=== PATIENT | female | born 1995 | race Caucasian/White ===

== ENCOUNTER 2017-05-26 11:09 | Outpatient (CLI) | payer OTHER ==
[2017-05-26 14:45] LABS: RUPTURE FETAL MEMBRANES NEGATIVE (NEGATIVE)
[2017-05-26] MEDS ORDERED: TERBUTALINE 1 ML (17:02)
[2017-05-26] MEDS: LACTATED RINGER'S 1,000 ML IV (17:16)
[2017-05-26] MEDS: TERBUTALINE 1 MG/ML INJ SC (17:17)
[2017-05-26] MEDS: BETAMET NA PHOS/AC(6 MG/ML) 5ML INJ IM (18:23)
== END 2017-05-26 19:15 | disposition home or self-care (01) ==
LOC: OBT 11:09 → L-D 11:10 → OBT 19:15
DX: O26.892 Other specified pregnancy related conditions, second trimester (principal); Z3A.27 27 weeks gestation of pregnancy; R10.30 Lower abdominal pain, unspecified; M54.9 Dorsalgia, unspecified
CPT/HCPCS: 36415; 76815; 76817; 76818; 82731; 84112; 96360; 96361; 96372

== ENCOUNTER 2017-05-27 18:51 | Inpatient (IN) | payer OTHER ==
[2017-05-27] MEDS: BETAMET NA PHOS/AC(6 MG/ML) 5ML INJ IM (20:39)
[2017-05-27 21:05] LABS: ADD UMIC YES; UR ASCORBIC ACID NEGATIVE (NEGATIVE); UR BACTERIA FEW /HPF (NONE SEEN); UR BILIRUBIN (Dip) NEGATIVE (NEGATIVE); UR BLOOD (Dip) NEGATIVE (NEGATIVE); UR CLARITY SLIGHTLY CLOUDY (CLEAR); UR COLOR YELLOW (YELLOW); UR GLUCOSE (Dip) NEGATIVE (NEGATIVE); UR KETONES (Dip) TRACE mg/dL (NEGATIVE); UR LEUKOCYTE ESTERASE (Dip) 3+ Leu/ul (NEGATIVE); UR NITRITE (Dip) NEGATIVE (NEGATIVE); UR RBC 2 /HPF (0-5); UR SPECIFIC GRAVITY (Dip) 1.018 (1.003-1.030); UR SQUAMOUS EPITHELIAL CELL FEW /HPF (FEW); UR TOTAL PROTEIN (Dip) 1+ mg/dl (NEGATIVE); UR UROBILINOGEN (Dip) NEGATIVE (NEGATIVE); UR WBC 4 /HPF (0-5)
[2017-05-27] MEDS: LACTATED RINGER'S 1,000 ML IV (23:00)
[2017-05-28] MEDS ORDERED: ACETAMINOPHEN 325 MG TAB PO
[2017-05-28] MEDS: MAGNESIUM SULFATE 4 GM/100 ML 100 ML IV (00:19)
[2017-05-28] MEDS: LACTATED RINGER'S 1,000 ML IV ×2 (00:20→19:29)
[2017-05-28] MEDS: MAGNESIUM SULFATE 20 GM/500 ML 500 ML IV ×3 (01:07→22:33)
[2017-05-28 08:44] LABS: MAGNESIUM 5.6 mg/dl (1.7-2.5)
[2017-05-28] MEDS: PRENATAL VITAMIN PO (10:37)
[2017-05-28 13:23] LABS: MAGNESIUM 5.1 mg/dl (1.7-2.5)
[2017-05-28 19:02] LABS: MAGNESIUM 5.6 mg/dl (1.7-2.5)
[2017-05-28 19:03] LABS: ADD MAN DIFF? NO
[2017-05-28 19:04] LABS: BASOPHILS % 0.2 % (0.0-2.0); HEMATOCRIT 26.6 % (37.0-47.0); HEMOGLOBIN 8.9 g/dl (12.0-16.0); LYMPHOCYTES # 2.3 10^3/ul (0.8-2.9); LYMPHOCYTES % 15.5 % (15.0-51.0); MEAN CORPUSCULAR HEMOGLOBIN 30.8 pg (29.0-33.0); MEAN CORPUSCULAR HGB CONC 33.5 g/dl (32.0-37.0); MONOCYTE # 1.5 10^3/ul (0.3-0.9); MONOCYTES % 10.2 % (0.0-11.0); NEUTROPHIL # 10.7 10^3/ul (1.6-7.5); NEUTROPHILS % 73.1 % (39.0-77.0); PLATELET COUNT 305 10^3/UL (140-415); RED BLOOD COUNT 2.89 10^6/ul (4.20-5.40); RED CELL DISTRIBUTION WIDTH 13.1 % (11.5-14.5)
[2017-05-28 19:04] LABS: WHITE BLOOD COUNT 14.7 10^3/ul (4.8-10.8)
[2017-05-29 01:38] LABS: MAGNESIUM 5.1 mg/dl (1.7-2.5)
[2017-05-29] MEDS: PRENATAL VITAMIN PO (09:04)
[2017-05-29] MEDS: MAGNESIUM SULFATE 20 GM/500 ML 500 ML IV (09:06)
[2017-05-29] MEDS: LACTATED RINGER'S 1,000 ML IV (09:07)
[2017-05-29] MEDS: NIFEdipine 10 MG CAP PO ×2 (13:13→18:04)
[2017-05-29] MEDS ORDERED: NIFEdipine 10 MG CAP PO (18:00)
== END 2017-05-29 18:59 | disposition home or self-care (01) | DRG 778 ==
LOC: OBT 18:51 → L-D 18:52
DX: O60.03 Preterm labor without delivery, third trimester (principal); Z3A.31 31 weeks gestation of pregnancy
CPT/HCPCS: 36415; 76815; 76817; 81001; 83735; 85025; 87086

== ENCOUNTER 2017-06-17 12:39 | Outpatient (CLI) | payer OTHER ==
[2017-06-17] MEDS: LACTATED RINGER'S 1,000 ML IV ×2 (14:03→15:16)
[2017-06-17] MEDS: TERBUTALINE 1 MG/ML INJ SC (14:03)
[2017-06-17] MEDS ORDERED: TERBUTALINE 1 MG/ML INJ SC (15:33)
== END 2017-06-17 18:05 | disposition home or self-care (01) ==
LOC: OBT 12:39 → L-D 12:41 → OBT 17:19 → L-D 17:19 → OBT 18:05
DX: O62.9 Abnormality of forces of labor, unspecified (principal); Z3A.34 34 weeks gestation of pregnancy
CPT/HCPCS: 36415; 96360; 96361; 96372

== ENCOUNTER 2017-07-12 10:59 | Inpatient (IN) | payer OTHER ==
[2017-07-12] MEDS ORDERED: CARBOPROST 250 MCG INJ IM ×2 (12:30→17:30)
[2017-07-12] MEDS ORDERED: LIDOCAINE 1% (MPF) 30 ML INJ INJ (12:30)
[2017-07-12] MEDS ORDERED: OXYTOCIN 30 UNITS/LR 500 ML IV ×2 (12:30→17:30)
[2017-07-12] MEDS ORDERED: MISOPROSTOL 200 MCG TAB PR ×2 (12:30→17:30)
[2017-07-12] MEDS ORDERED: METHYLERGONOVINE 0.2 MG INJ IM ×2 (12:30→17:30)
[2017-07-12 12:45] LABS: ADD MAN DIFF? NO
[2017-07-12 12:49] LABS: BASOPHIL # 0.1 10^3/ul (0.0-0.1); BASOPHILS % 0.4 % (0.0-2.0); EOSINOPHILS % 0.1 % (0.0-7.0); HEMATOCRIT 32.3 % (37.0-47.0); HEMOGLOBIN 10.2 g/dl (12.0-16.0); LYMPHOCYTES # 3.1 10^3/ul (0.8-2.9); LYMPHOCYTES % 24.2 % (15.0-51.0); MEAN CORPUSCULAR HEMOGLOBIN 27.4 pg (29.0-33.0); MEAN CORPUSCULAR HGB CONC 31.6 g/dl (32.0-37.0); MEAN CORPUSCULAR VOLUME 86.8 fl (82.0-101.0); MEAN PLATELET VOLUME 10.5 fl (7.4-10.4); MONOCYTE # 1.1 10^3/ul (0.3-0.9); MONOCYTES % 8.7 % (0.0-11.0); NEUTROPHIL # 8.5 10^3/ul (1.6-7.5); NEUTROPHILS % 65.9 % (39.0-77.0); NUCLEATED RED BLOOD CELLS% 0.2 /100WBC (0.0-0.0); PLATELET COUNT 328 10^3/UL (140-415); RED BLOOD COUNT 3.72 10^6/ul (4.20-5.40); RED CELL DISTRIBUTION WIDTH 13.6 % (11.5-14.5)
[2017-07-12] MEDS: LACTATED RINGER'S 1,000 ML IV (12:50)
[2017-07-12] MEDS: BUTORPHANOL 2 MG INJ IV (12:51)
[2017-07-12] MEDS: AMPICILLIN 2 GM/NS (PMX) 100 ML IV (13:01)
[2017-07-12 13:09] LABS: INR 0.88; PT RATIO 0.9
[2017-07-12 13:39] LABS: HEPATITIS B SURFACE ANTIGEN NEGATIVE (NEGATIVE)
[2017-07-12] MEDS: OXYTOCIN 30 UNITS/LR 500 ML IV ×2 (13:58→15:25)
[2017-07-12 14:55] LABS: RAPID PLASMA REAGIN NONREACTIVE (NR)
[2017-07-12] MEDS ORDERED: AMPICILLIN 1 GM/NS (PMX) 50 ML IV (16:30)
[2017-07-12] MEDS: LACTATED RINGER'S 1,000 ML IV* (17:10)
[2017-07-12] MEDS ORDERED: HYDROCODONE/APAP (5/325) TAB PO ×2 (17:30)
[2017-07-12] MEDS ORDERED: ZOLPIDEM 5 MG TAB PO (17:30)
[2017-07-12] MEDS ORDERED: LANOLIN 7 GM TUBE TOP (17:30)
[2017-07-12] MEDS: IBUPROFEN 600 MG TAB PO ×2 (18:07→23:39)
[2017-07-12] MEDS: BENZOCAINE 20% 56 ML SPRAY TOP (18:14)
[2017-07-12] MEDS: WITCH HAZEL/GLYCERIN PAD PR (18:14)
[2017-07-12] MEDS: DIBUCAINE 1% 30 GM OINT PR (18:15)
[2017-07-12] MEDS: MAGNESIUM HYDROXIDE 30ML CUP PO (20:48)
[2017-07-12] MEDS: SENNA/DOCUSATE NA (8.6MG/50MG) TAB PO (20:48)
[2017-07-13] MEDS: LACTATED RINGER'S 1,000 ML IV* ×3 (01:10→17:10)
[2017-07-13] MEDS: IBUPROFEN 600 MG TAB PO ×3 (05:31→18:27)
[2017-07-13 06:51] LABS: ADD MAN DIFF? NO
[2017-07-13 06:57] LABS: BASOPHILS % 0.3 % (0.0-2.0); EOSINOPHILS % 0.1 % (0.0-7.0); HEMATOCRIT 23.9 % (37.0-47.0); HEMOGLOBIN 7.7 g/dl (12.0-16.0); LYMPHOCYTES # 3.2 10^3/ul (0.8-2.9); LYMPHOCYTES % 23.7 % (15.0-51.0); MEAN CORPUSCULAR HEMOGLOBIN 28.2 pg (29.0-33.0); MEAN CORPUSCULAR HGB CONC 32.2 g/dl (32.0-37.0); MEAN CORPUSCULAR VOLUME 87.5 fl (82.0-101.0); MEAN PLATELET VOLUME 10.4 fl (7.4-10.4); MONOCYTE # 1.3 10^3/ul (0.3-0.9); MONOCYTES % 9.7 % (0.0-11.0); NEUTROPHIL # 8.9 10^3/ul (1.6-7.5); NEUTROPHILS % 65.8 % (39.0-77.0); NUCLEATED RED BLOOD CELLS% 0.1 /100WBC (0.0-0.0); PLATELET COUNT 279 10^3/UL (140-415); RED BLOOD COUNT 2.73 10^6/ul (4.20-5.40); RED CELL DISTRIBUTION WIDTH 13.7 % (11.5-14.5)
[2017-07-13 06:57] LABS: WHITE BLOOD COUNT 13.5 10^3/ul (4.8-10.8)
[2017-07-13] MEDS: SENNA/DOCUSATE NA (8.6MG/50MG) TAB PO ×2 (08:53→21:11)
[2017-07-13] MEDS: MAGNESIUM HYDROXIDE 30ML CUP PO ×2 (08:53→21:11)
[2017-07-14] MEDS: IBUPROFEN 600 MG TAB PO ×3 (00:03→12:14)
[2017-07-14] MEDS: LACTATED RINGER'S 1,000 ML IV* (01:10)
[2017-07-14] MEDS: MAGNESIUM HYDROXIDE 30ML CUP PO (09:00)
[2017-07-14] MEDS: SENNA/DOCUSATE NA (8.6MG/50MG) TAB PO (09:24)
[2017-07-14] MEDS: DIPHTH/TET/ACEL PERTUSS (ADULT) 0.5 ML VIAL IM* (09:31)
[2017-07-14] MEDS: VARICELLA VACCINE LIVE/PF 1,350 UNIT/0.5 ML ML SC* (09:32)
[2017-07-14] MEDS: MEASLES,MUMPS,RUBELLA VACCINE INJ SC* (09:32)
== END 2017-07-14 16:41 | disposition home or self-care (01) | DRG 775 ==
LOC: OBT 10:59 → L-D 11:00 → OBT 12:10 → L-D 12:00 → PP1 16:20
PROVIDERS: Obstetrics & Gynecology
PROC: 10E0XZZ Delivery of Products of Conception, External Approach (ICD-10-PCS; principal; 2017-07-12)
PROC: 0KQM0ZZ Repair Perineum Muscle, Open Approach (ICD-10-PCS; 2017-07-12)
PROC: 3E033VJ Introduction of Other Hormone into Peripheral Vein, Percutaneous Approach (ICD-10-PCS; 2017-07-12)
DX: O69.81X0 Labor and delivery complicated by cord around neck, without compression, not applicable or unspecified (principal); O70.1 Second degree perineal laceration during delivery; Z3A.37 37 weeks gestation of pregnancy; Z37.0 Single live birth
CPT/HCPCS: 85025; 85610; 85730; 86592; 86850; 86900; 86901; 87340